=== PATIENT | male | born 1990 | race African-American/Black ===

== ENCOUNTER 2023-07-10 09:43 | Emergency (ER) | payer OTHER ==
[~2023-07-10] VITALS: Ht 180.3 cm; Wt 131.5 kg
[2023-07-10 09:50] VITALS: BP 132/65; TEMP 98.2; O2SAT 98
[2023-07-10] MEDS ORDERED: OLAN20TA3 PO (10:20)
== END 2023-07-10 11:16 | disposition home or self-care (01) ==
LOC: ER 09:43
DX: F29 Unspecified psychosis not due to a substance or known physiological condition (principal); Z76.0 Encounter for issue of repeat prescription; Z60.2 Problems related to living alone